=== PATIENT | female | born 1985 | race Caucasian/White ===

== ENCOUNTER 2022-04-07 08:22 | Emergency (ER) | payer OTHER ==
[~2022-04-07 08:22] MED LIST: AUGMENTIN 875-1 EACH PO; CORTIZONE-1057 GM TP; IBUPROFEN800 MG PO; PREDNISONE 50 M50 MG PO; PRENATA CHEWAB1 EACH PO; SYNTHROID50 MCG PO; ZOFRAN4 MG PO
[2022-04-07] MEDS ORDERED: PREDNISONE 50 M50 MG PO (09:44)
[2022-04-07] MEDS ORDERED: BENADRYL 25MG C25 MG PO (09:44)
== END 2022-04-07 10:17 | disposition home or self-care (01) ==
LOC: ER1 08:22
DX: R21 Rash and other nonspecific skin eruption (principal)
CPT/HCPCS: 96374; 96375; 99282; J2930